=== PATIENT | male | born 1945 | race Caucasian/White ===

== ENCOUNTER → 2016-09-26 | Outpatient (CLI) | payer MEDICARE, OTHER | END | disposition home or self-care (01) | LOC: GMAJ 14:45 | PROVIDERS: ATTEND Family Medicine | DX: Z12.5 Encounter for screening for malignant neoplasm of prostate (principal) ==

== ENCOUNTER → 2017-01-15 | Outpatient (CLI) | payer MEDICARE, OTHER | END | disposition home or self-care (01) | LOC: GMAJ 14:16 | PROVIDERS: ATTEND Family Medicine | DX: E03.9 Hypothyroidism, unspecified (principal) ==

== ENCOUNTER → 2017-07-18 | Outpatient (CLI) | payer MEDICARE, OTHER | LOC: GMA 10:41 | PROVIDERS: ATTEND Physician Assistant | DX: E03.9 Hypothyroidism, unspecified (principal) ==

== ENCOUNTER → 2017-10-31 | Outpatient (CLI) | payer MEDICARE, OTHER ==
--- NOTE | 2017-11-03 11:13 | MRI ---
EXAM DESCRIPTION: Lumbar Spine w/o Contrast MRI. CLINICAL HISTORY: LOW BACK PAIN COMPARISON: None. TECHNIQUE: Multiplanar, multiple standard sequences, non contrast MRI, lumbar spine. FINDINGS: L5-S1: Disc desiccation. Disc space maintained. No significant bulging in the canal. Old Schmorl's node in the inferior L5 endplate. Minimal bilateral foraminal narrowing. Suggestion of left lateralizing disc herniation and possibly associated with left lateral endplate marginal spur abutting the right L5 nerve. Minimal facet arthrosis and hypertrophy bilaterally. Mild canal narrowing. Well-circumscribed bright T1 and T2 signal in the L5 vertebral body. L4-5: Disc desiccation and loss of disc space right lateral with right anterior disc bulging and endplate spurs. Disc bulge into right foramen abutting the right L4 nerve. Mild to moderate narrowing of the left foramen. Minimal ligament hypertrophy and facet arthrosis with mild canal narrowing. L3-4: Disc desiccation no significant bulging into the canal. Left anterior disc bulge with large spurs. Disc bulge into the left foramen which is nearly stenotic. Moderate narrowing of the right foramen. Bilateral facet arthrosis and flavum ligament hypertrophy with borderline canal stenosis. L2-3: Disc desiccation and tiny anterior bulge left anterior bulge and spurs. Posterior 4 mm bulge abutting the thecal sac. Bilateral facet arthrosis and minimal flavum ligament hypertrophy with moderate canal narrowing. Moderate left foraminal narrowing and mild right foraminal narrowing. Schmorl's nodes superior L3 endplate. L1-2: Disc desiccation and concavities in the endplates. No posterior disc bulge but annular fissure present. Left anterior marginal spurs with disc bulge. Conus terminates at this level. Bilateral facet arthrosis and ligament hypertrophy with moderate canal narrowing. Bilateral moderate foraminal narrowing. A mass-like object with bone signal and possible cortication is noted extending laterally from the left L1 pars impressing on the left paraspinal muscles. Inferior margin is the left L1-2 facet and superior margin is the base of the left L1 pedicle and transverse process. Dimensions are approximately 3.3 x 2.0 x 2.7 cm. No marrow edema in this mass and no adjacent soft tissue edema/mass. T12-L1: Disc desiccation with anterior and superior endplate concavities. Minimal anterior bulge and endplate spurs. Tiny posterior bulge with annular fissure but not abutting the cord. Moderate canal narrowing. Posterior elements unremarkable. Mild bilateral foraminal narrowing. No scoliosis. Paravertebral soft tissues demonstrating left extrarenal pelvis or renal cyst.. Otherwise normal marrow signal in the remaining vertebral bodies and the posterior elements. Vertebral bodies are not compressed at any level. IMPRESSION: 1. Disc desiccation, facet arthrosis and ligament hypertrophy at almost every level. 2. Left lateralizing disc osteophyte herniation at L5-S1 may be impinging the left L5 nerve lateral to the foramen. Correlate for left L5 radiculopathy. Hemangioma in the L5 vertebral body. 3. L4-5 disc bulge into the right foramen abutting the right L4 nerve. Correlate for right L4 radiculopathy. 4. L3-4 Disc bulge into the left foramen which is nearly stenotic. Correlate for left L3 radiculopathy. Borderline multifactorial canal stenosis. 5. Bilateral facet arthrosis and flavum ligament hypertrophy at L2-3 with moderate canal narrowing. Posterior disc bulge. Moderate canal narrowing at L1-L2 from bilateral facet arthrosis and flavum ligament hypertrophy. 6. Bony masslike object abutting the left L1-2 facet and left L1 pars interarticularis representing remote fused facet with bony hypertrophy. No follow-up imaging recommended. 7. Left renal parapelvic cyst versus extrarenal pelvis. Seen on prior abdominal ultrasound 06/06/2011. No imaging follow-up recommended. Electronically signed by: Raffi Bailey MD 11/03/2017 11:11 AM CDT
== END ==
LOC: MRI 11:00
PROVIDERS: ATTEND Family Medicine
DX: M51.27 Other intervertebral disc displacement, lumbosacral region (principal); M51.26 Other intervertebral disc displacement, lumbar region

== ENCOUNTER 2017-11-09 13:51 | Emergency (ER) | payer MEDICARE, OTHER ==
[2017-11-09 14:08] VITALS: TEMP 97.7
[2017-11-09] MEDS ORDERED: fentaNYL CITRATE INJ 50 MCG/ML AMP IM ONE (14:15)
[2017-11-09] MEDS ORDERED: ORPHENADRINE CITRATE 30 MG/ML AMP IM ONE (14:15)
--- NOTE | 2017-11-09 14:15 | ED.PDOC ---
History of Present Illness - General Chief Complaint: Back Pain or Injury Stated Complaint: low back pain Time Seen by Provider: 11/09/17 14:13 Source: RN notes reviewed, Vital Signs reviewed, EMS notes reviewed Exam Limitations: no limitations Additional Information: 72 YEAR OLD WHITE MALE WITH HISTORY OF CHRONIC BACK PAIN TODAY BROUGHT HERE BY EMS AFTER HE STARTED EXPERIENCING SEVERE LOWER BACK PAIN AFTER USING THE TOILET HE HAS NO NUMBNESS OR WEAKNESS IN THE EXTREMITIES HE HAS GOOD SPHINCTER CONTROL HE HAS NO FEVER CHILLS DENIES NUMBNESS OR WEAKNESS IN HIS LOWER EXTREMTIES - History of Present Illness Timing/Duration: 1 hour Quality/Severity: burning Back Pain Location: lumbar spine Improving Factors: rest Worsening Factors: movement Associated Symptoms: denies symptoms Allergies/Adverse Reactions: Allergies Clindamycin Allergy (Verified 12/12/13 08:45) Home Medications: Ambulatory Orders Glipizide 10 mg PO BID 12/09/13 Acetamin W/Cod #3 Tab [Tylenol w/CODEINE #3] 1 ea PO Q6HR PRN #40 tab 11/09/17 Azithromycin Tab [Zithromax Tab] 250 mg PO QDPC #1 tab 11/09/17 Cyclobenzaprine HCl [Flexeril] 10 mg PO TID PRN 11/09/17 Dexamethasone Tab [Decadron Tab] 4 mg PO Q12HRS 5 Days #1 tab 11/09/17 Ketorolac Tromethamine (Ophth) [Acular] 1 drop RIGHT_EYE TID 11/09/17 Levothyroxine Sodium 75 mcg PO DAILY 11/09/17 Meloxicam [Mobic] 7.5 mg PO BID 11/09/17 Metformin HCl 1,000 mg PO BID 11/09/17 Methocarbamol [Robaxin] 750 mg PO Q8HR #30 tab 11/09/17 Simvastatin 20 mg PO DAILY 11/09/17 Sitagliptin Phosphate [Januvia] 100 mg PO DAILY 11/09/17 diphenhydrAMINE HCL [Benadryl] 25 mg PO PRN 11/09/17 Review of Systems - Review of Systems Constitutional: States: no symptoms reported EENTM: States: no symptoms reported Respiratory: States: no symptoms reported Cardiology: States: no symptoms reported Gastrointestinal/Abdominal: States: no symptoms reported Genitourinary: States: no symptoms reported Musculoskeletal: States: no symptoms reported Skin: States: no symptoms reported Neurological: States: no symptoms reported Endocrine: States: no symptoms reported Hematologic/Lymphatic: States: no symptoms reported Past Medical History (General) - Patient Medical History Hx Stroke: No Hx Cardiac Disorders: No Hx Congestive Heart Failure: No Hx Diabetes: Yes Hx MRSA: Yes - Surveillance Swab 2013 - Vaccination History Hx Influenza Vaccination: Yes Hx Pneumococcal Vaccination: - unknown - Social History Hx Tobacco Use: No Hx Alcohol Use: No Hx Substance Use: No Hx Physical Abuse: No Hx Emotional Abuse: No Family Medical History - Family History Father Family History: Unknown Living Status: Unknown Physical Exam - Physical Exam General Appearance: Alert, Comfortable Eyes, Ears, Nose, Throat Exam: PERRL/EOMI, normal ENT inspection, TMs normal, pharynx normal Neck Exam: non-tender, full range of motion, normal alignment, normal inspection Cardiovascular/Respiratory: regular rate, rhythm, normal peripheral pulses, no JVD, normal breath sounds Gastrointestinal/Abdominal: normal bowel sounds, non tender, soft, no organomegaly, no pulsatile mass Back Exam: normal inspection, no CVA tenderness, no vertebral tenderness, other - left paravertebral muscle spasm noted Extremity Exam: no evidence of injury, normal range of motion, non-tender 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 Copy, Patient Portal Self Enrollment Instructions: DI for Low Back Pain Referrals: Bruce Lam MD [Primary Care Provider] - 1-2 Weeks Prescriptions: Dexamethasone Tab [Decadron Tab] 4 mg PO Q12HRS 5 Days #1 tab Azithromycin Tab [Zithromax Tab] 250 mg PO QDPC #1 tab Home Medications: Ambulatory Orders Glipizide 10 mg PO BID 12/09/13 Acetamin W/Cod #3 Tab [Tylenol w/CODEINE #3] 1 ea PO Q6HR PRN #40 tab 11/09/17 Azithromycin Tab [Zithromax Tab] 250 mg PO QDPC #1 tab 11/09/17 Cyclobenzaprine HCl [Flexeril] 10 mg PO TID PRN 11/09/17 Dexamethasone Tab [Decadron Tab] 4 mg PO Q12HRS 5 Days #1 tab 11/09/17 Ketorolac Tromethamine (Ophth) [Acular] 1 drop RIGHT_EYE TID 11/09/17 Levothyroxine Sodium 75 mcg PO DAILY 11/09/17 Meloxicam [Mobic] 7.5 mg PO BID 11/09/17 Metformin HCl 1,000 mg PO BID 11/09/17 Methocarbamol [Robaxin] 750 mg PO Q8HR #30 tab 11/09/17 Simvastatin 20 mg PO DAILY 11/09/17 Sitagliptin Phosphate [Januvia] 100 mg PO DAILY 11/09/17 diphenhydrAMINE HCL [Benadryl] 25 mg PO PRN 11/09/17
[2017-11-09] MEDS ORDERED: ALBUTEROL SULFATE 2.5 MG/3 ML VIAL NEB ONE (14:17)
[2017-11-09] MEDS ORDERED: DEXAMETHASONE INJ 3 MG, SODIUM CHLORIDE 0.9% NEB 3 ML NEB ONE ×2 (14:17)
[2017-11-09 15:41] VITALS: BP 147/81; O2SAT 96
== END 2017-11-09 15:40 | disposition home or self-care (01) ==
LOC: ER 13:51
DX: M51.36 Other intervertebral disc degeneration, lumbar region (principal); G89.29 Other chronic pain; M54.5 Low back pain; E11.9 Type 2 diabetes mellitus without complications; Z79.899 Other long term (current) drug therapy
CPT/HCPCS: J2360; J3010

== ENCOUNTER → 2018-02-09 | Outpatient (CLI) | payer MEDICARE, OTHER | LOC: GMAJ 10:44 | PROVIDERS: ATTEND Family Medicine | DX: E03.9 Hypothyroidism, unspecified (principal) ==

== ENCOUNTER → 2018-06-15 | Outpatient (CLI) | payer MEDICARE, OTHER | LOC: GMAJ 11:20 | PROVIDERS: ATTEND Family Medicine | DX: E03.9 Hypothyroidism, unspecified (principal) ==

== ENCOUNTER → 2018-10-21 | Outpatient (CLI) | payer MEDICARE, OTHER | LOC: GMAJ 10:41 | PROVIDERS: ATTEND Family Medicine | DX: E03.9 Hypothyroidism, unspecified (principal); Z12.5 Encounter for screening for malignant neoplasm of prostate | CPT/HCPCS: 84443; G0103 ==

== ENCOUNTER 2018-11-27 13:21 | Emergency (ER) | payer MEDICARE, OTHER ==
[2018-11-27] MEDS: ONDANSETRON INJ 4 MG/2 ML VIAL IV ONE (13:55)
[2018-11-27] MEDS: MORPHINE SULFATE INJ 10 MG/ML VIAL IV ONE (14:06)
--- NOTE | 2018-11-27 14:43 | CT ---
EXAM DESCRIPTION: Lumbar Spine CLINICAL HISTORY: compression injury. Low back pain. Fall last evening. COMPARISON: MRI lumbar spine 10/31/2017 TECHNIQUE: Multiple axial images of the lumbar spine without contrast. Multiplanar reformatted images. This exam was performed according to our departmental dose-optimization program, which includes automated exposure control, adjustment of the mA and/or kV according to patient size and/or use of iterative reconstruction technique. FINDINGS: The designated L5-S1 disc space is on axial image 93. Mild anterior wedging of the L1 vertebral body again demonstrated, not significantly changed from the prior exam. Mild loss of stature along the superior endplate of L5, likely degenerative. No definite CT evidence of acute fracture or destructive osseous lesion. Advanced multilevel lumbar disc degeneration and facet degenerative changes. Multilevel large anterolateral disc bulging with osteophytes, most pronounced at L3-L4. At L4-L5 and L5-S1, there is moderate to severe bilateral neural foraminal stenoses and at least mild spinal canal stenosis. Less pronounced degenerative changes at the remaining levels. Moderate atherosclerosis in the abdominal aorta. Probable left renal peripelvic cyst or extrarenal pelvis, not significantly changed. Advanced degenerative changes in both sacroiliac joints. IMPRESSION: 1. Advanced degenerative changes, with no CT evidence of an acute osseous abnormality in the lumbar spine. 2. Other findings as above. Electronically signed by: Brenton Llamas MD 11/27/2018 2:41 PM CDT
--- NOTE | 2018-11-27 15:03 | ED.PDOC ---
History of Present Illness - General Chief Complaint: Back Pain or Injury Stated Complaint: Low back discomfort Time Seen by Provider: 11/27/18 13:40 Source: patient, RN notes reviewed, Vital Signs reviewed, family Exam Limitations: no limitations - History of Present Illness Initial Comments: c/o back pain after losing his balance & falling onto his buttocks (seated position). No sciatica, paresthesias, weakness or bowel/bladder changes. Timing/Duration: 7-24 hours Quality/Severity: severe Back Pain Location: lumbar spine Back Pain Radiation: buttocks Method of Injury/Prior Injury: fell Improving Factors: rest Worsening Factors: movement Associated Symptoms: denies symptoms Allergies/Adverse Reactions: Allergies Clindamycin Allergy (Verified 11/27/18 13:38) Other Skin turned red and peeled Home Medications: Ambulatory Orders Glipizide 10 mg PO BID 12/09/13 Levothyroxine Sodium 75 mcg PO DAILY 11/09/17 Meloxicam [Mobic] 7.5 mg PO BID 11/09/17 Metformin HCl 1,000 mg PO BID 11/09/17 Simvastatin 20 mg PO DAILY 11/09/17 Sitagliptin Phosphate [Januvia] 100 mg PO DAILY 11/09/17 Acetaminophen W/ Codeine [Tylenol W/ CODEINE #3] 1 ea PO Q8HRS PRN 3 Days #9 11/27/18 Insulin Glargine 100U/ml [Lantus] 30 unit SUBCU BID 11/27/18 Review of Systems - Review of Systems Constitutional: States: no symptoms reported Respiratory: States: no symptoms reported Cardiology: States: no symptoms reported Gastrointestinal/Abdominal: States: no symptoms reported Genitourinary: States: no symptoms reported Musculoskeletal: States: see HPI Skin: States: no symptoms reported Neurological: States: no symptoms reported Past Medical History (General) - Patient Medical History Hx Stroke: No Hx Cardiac Disorders: Yes Hx Congestive Heart Failure: No Hx Thyroid Disease: Yes Hx Diabetes: Yes Hx MRSA: No Surgical History: Hysterectomy - Vaccination History Hx Tetanus, Diphtheria Vaccination: No Hx Influenza Vaccination: Yes - 2018 Hx Pneumococcal Vaccination: No - Social History Hx Tobacco Use: No Hx Alcohol Use: No Hx Substance Use: No Hx Physical Abuse: No Hx Emotional Abuse: No Family Medical History - Family History Father Family History: Unknown Living Status: Unknown Physical Exam - Physical Exam General Appearance: Alert, No apparent distress, Other - uncomfortable, able to push himself over in bed using his legs Neck Exam: full range of motion, normal inspection Cardiovascular/Respiratory: no respiratory distress Gastrointestinal/Abdominal: non tender, soft Back Exam: normal inspection, no CVA tenderness, decreased range of motion, other - diffuse pain across entire back at approx the L3 level Extremity Exam: no evidence of injury Neurologic: no motor/sensory deficits, alert, normal mood/affect, oriented x 3 Skin Exam: normal color, warm/dry Progress - Progress Progress: 11/27/18 15:02 Feels better & able to stand but not walk. Norflex worked previously. 11/27/18 15:31 Walking to the BR without difficulty. - EKG/XRAY/CT CT Ordered: Yes - DDD Departure - Departure Clinical Impression: Acute exacerbation of chronic low back pain, Degeneration of lumbar in tervertebral disc Fall Qualifiers: Encounter type: initial encounter Qualified Code(s): W19.XXXA - Unspecified fall, initial encounter Time of Disposition: 15:32 Disposition: Discharge to Home or Self Care Condition: Good Departure Forms: ED Discharge - Pt. Copy, Patient Portal Self Enrollment Instructions: DI for Low Back Pain Activity: increase activity as tolerated Referrals: Bruce Lam MD [Primary Care Provider] - 1-5 Days Prescriptions: Acetaminophen W/ Codeine [Tylenol W/ CODEINE #3] 1 ea PO Q8HRS PRN 3 Days #9 PRN Reason: Moderate Pain Home Medications: Ambulatory Orders Glipizide 10 mg PO BID 12/09/13 Levothyroxine Sodium 75 mcg PO DAILY 11/09/17 Meloxicam [Mobic] 7.5 mg PO BID 11/09/17 Metformin HCl 1,000 mg PO BID 11/09/17 Simvastatin 20 mg PO DAILY 11/09/17 Sitagliptin Phosphate [Januvia] 100 mg PO DAILY 11/09/17 Acetaminophen W/ Codeine [Tylenol W/ CODEINE #3] 1 ea PO Q8HRS PRN 3 Days #9 11/27/18 Insulin Glargine 100U/ml [Lantus] 30 unit SUBCU BID 11/27/18
[2018-11-27] MEDS: ORPHENADRINE CITRATE 30 MG/ML AMP IM ONE (15:05)
[2018-11-27 15:45] VITALS: BP 168/80; TEMP 98.1
[2018-11-27 15:46] VITALS: O2SAT 97
== END 2018-11-27 15:38 | disposition home or self-care (01) ==
LOC: ER 13:21
DX: M54.5 Low back pain (principal); G89.29 Other chronic pain; M51.36 Other intervertebral disc degeneration, lumbar region; I51.9 Heart disease, unspecified; E07.9 Disorder of thyroid, unspecified; E11.9 Type 2 diabetes mellitus without complications; Z79.4 Long term (current) use of insulin; Z79.899 Other long term (current) drug therapy; Z88.1 Allergy status to other antibiotic agents; W18.39XA Other fall on same level, initial encounter
CPT/HCPCS: 72131; J2270; J2360; J2405

== ENCOUNTER → 2019-02-25 | Outpatient (CLI) | payer MEDICARE, OTHER | LOC: GMAJ 10:42 | PROVIDERS: ATTEND Family Medicine | DX: E03.9 Hypothyroidism, unspecified (principal); E11.9 Type 2 diabetes mellitus without complications; E78.2 Mixed hyperlipidemia ==

== ENCOUNTER 2019-07-12 05:18 | Day surgery (SDC) | payer MEDICARE, OTHER ==
[2019-07-12] MEDS ORDERED: DEXAMETHASONE 0.1% OPHTH SOL 1 DROP LEFT_EYE ONE (09:00)
[2019-07-12] MEDS ORDERED: TROP 1%/CYCLOPEN 1%/PHENYL 2% DROPS OPHTH ONE (09:00)
[2019-07-12] MEDS ORDERED: LIDOCAINE 1% 2 ML VIAL INJ ONE (09:00)
[2019-07-12] MEDS ORDERED: PROPARACAINE 0.5% OPHTH SOL 15 ML BTTL LEFT_EYE ONE ×2 (09:00)
[2019-07-12] MEDS ORDERED: BRIMONIDINE 0.2% OPHTH DROPS LEFT_EYE ONE (09:00)
[2019-07-12] MEDS ORDERED: MIDAZOLAM INJ 2 MG/2 ML VIAL ONE (09:06)
[2019-07-12] MEDS ORDERED: MOXIFLOXACIN HCL (OPHTH) 1 DROP DROPS LEFT_EYE ONE (09:23)
== END 2019-07-12 10:00 | disposition home or self-care (01) ==
LOC: AMB 05:18
PROVIDERS: ATTEND Ophthalmology
DX: E11.36 Type 2 diabetes mellitus with diabetic cataract (principal); H25.12 Age-related nuclear cataract, left eye; Z88.8 Allergy status to other drugs, medicaments and biological substances; Z79.4 Long term (current) use of insulin; Z79.899 Other long term (current) drug therapy
CPT/HCPCS: 00142; 36416; 66984; 82948; J2250

== ENCOUNTER 2019-08-02 05:25 | Day surgery (SDC) | payer MEDICARE, OTHER ==
[2019-08-02] MEDS ORDERED: MIDAZOLAM INJ 2 MG/2 ML VIAL ONE (08:01)
[2019-08-02] MEDS: TOBRAMYCIN SULF 0.3 % OPHT SOL 1 DROP RIGHT_EYE ONE (08:03)
[2019-08-02] MEDS: DEXAMETHASONE 0.1% OPHTH SOL 1 DROP RIGHT_EYE ONE (08:03)
[2019-08-02] MEDS: MOXIFLOXACIN HCL (OPHTH) 1 DROP DROPS RIGHT_EYE ONE (08:03)
[2019-08-02] MEDS: PROPARACAINE 0.5% OPHTH SOL 15 ML BTTL RIGHT_EYE ONE (08:03)
[2019-08-02] MEDS: BRIMONIDINE 0.2% OPHTH DROPS RIGHT_EYE ONE (08:03)
[2019-08-02] MEDS: LIDOCAINE 1% 2 ML VIAL INJ ONE (08:03)
== END 2019-08-02 09:00 | disposition home or self-care (01) ==
LOC: AMB 05:25
PROVIDERS: ATTEND Ophthalmology
DX: E11.36 Type 2 diabetes mellitus with diabetic cataract (principal); H25.11 Age-related nuclear cataract, right eye; Z88.8 Allergy status to other drugs, medicaments and biological substances; Z79.84 Long term (current) use of oral hypoglycemic drugs; Z79.899 Other long term (current) drug therapy
CPT/HCPCS: 00142; 66984; J2250

== ENCOUNTER → 2019-11-11 | Outpatient (CLI) | payer MEDICARE, OTHER | LOC: GMAJ 12:11 | PROVIDERS: ATTEND Family Medicine | DX: E03.9 Hypothyroidism, unspecified (principal); E78.2 Mixed hyperlipidemia; E11.9 Type 2 diabetes mellitus without complications ==

== ENCOUNTER → 2020-02-28 | Outpatient (CLI) | payer MEDICARE, OTHER | LOC: GMAJ 10:52 | PROVIDERS: ATTEND Family Medicine | DX: Z12.5 Encounter for screening for malignant neoplasm of prostate (principal); E03.9 Hypothyroidism, unspecified; E78.2 Mixed hyperlipidemia; E11.9 Type 2 diabetes mellitus without complications | CPT/HCPCS: 84443; G0103 ==

== ENCOUNTER 2020-07-05 10:16 | Emergency (ER) | payer MEDICARE, OTHER ==
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
[2020-07-05 10:31] VITALS: TEMP 99.1
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
[2020-07-05 12:09] VITALS: BP 112/65; O2SAT 93
== END 2020-07-05 13:15 | disposition home or self-care (01) ==
LOC: ER 10:16
DX: Z04.3 Encounter for examination and observation following other accident (principal); M47.812 Spondylosis without myelopathy or radiculopathy, cervical region; M85.80 Other specified disorders of bone density and structure, unspecified site; E11.9 Type 2 diabetes mellitus without complications; E07.9 Disorder of thyroid, unspecified; I51.9 Heart disease, unspecified; V49.88XA Car occupant (driver) (passenger) injured in other specified transport accidents, initial encounter; Y92.410 Unspecified street and highway as the place of occurrence of the external cause; Z79.899 Other long term (current) drug therapy; Z79.4 Long term (current) use of insulin; Z88.1 Allergy status to other antibiotic agents

== ENCOUNTER → 2020-07-05 | Outpatient (CLI) | payer MEDICARE, OTHER | LOC: CANPRECLI → GMAJ 10:30 | PROVIDERS: ATTEND Family Medicine | DX: E03.9 Hypothyroidism, unspecified (principal); E11.9 Type 2 diabetes mellitus without complications; E78.2 Mixed hyperlipidemia ==